=== PATIENT | female | born 1945 | race Caucasian/White ===

== ENCOUNTER 2019-12-05 17:46 | Emergency (ER) | payer MEDICARE, OTHER ==
[~2019-12-05] VITALS: Ht 157.5 cm; Wt 74.8 kg
[2019-12-05 17:52] VITALS: BP 152/79
[2019-12-05] MEDS ORDERED: IBUPROFEN 600MG TABLET PO ONE (19:15)
== END 2019-12-05 20:46 | disposition home or self-care (01) ==
LOC: ER 17:46
DX: M71.21 Synovial cyst of popliteal space [Baker], right knee (principal)
CPT/HCPCS: 73562; 93971; 99284

== ENCOUNTER 2022-09-29 19:38 | Emergency (ER) | payer MEDICARE, MEDICAID ==
[~2022-09-29] VITALS: Ht 157.5 cm; Wt 71.0 kg
[2022-09-29 19:42] VITALS: O2SAT 99
[2022-09-29] MEDS ORDERED: FLUORESCEIN SODIUM 1MG/STRIP BOTHEYE ONE (20:30)
[2022-09-29] MEDS ORDERED: VISCOUS LIDOCAINE 2% 15 ML UDC MM STA (20:48)
[2022-09-29] MEDS ORDERED: GLYC30DR4 EACHEYE (20:52)
[2022-09-29 21:26] VITALS: BP 133/74; PULSE 94; RESP 14; TEMP 98.8
== END 2022-09-29 21:27 | disposition home or self-care (01) ==
LOC: ER 19:38
DX: J02.9 Acute pharyngitis, unspecified (principal); H04.123 Dry eye syndrome of bilateral lacrimal glands
CPT/HCPCS: 99283